=== PATIENT | female | born 1960 | race Caucasian/White ===

== ENCOUNTER → 2018-07-10 10:37 | Outpatient (CLI) | payer BC, SELFPAY ==
--- NOTE | 2018-07-10 10:39 | XR_ITS ---
XR wrist RT min 3V HISTORY follow-up fracture/ORIF ITS.REASON: Rt wrist splint ORDERING PHYSICIAN: Leeann Morejon MD PATIENT AGE: 58 years Comparison: 07/01/2018 FINDINGS: There is placement of an anterior bone plate at the distal radius with multiple screws stabilizing the distal radial fracture which is in good alignment. Fracture line is still visible. IMPRESSION: Good alignment status post ORIF distal radial fracture
== END ==
PROVIDERS: Visit Provider Orthopaedic Surgery
DX: S52.509A Unspecified fracture of the lower end of unspecified radius, initial encounter for closed fracture (principal)
CPT/HCPCS: 73110

== ENCOUNTER → 2018-07-31 10:43 | Outpatient (CLI) | payer BC, SELFPAY ==
--- NOTE | 2018-07-31 10:46 | XR_ITS ---
XR wrist RT min 3V HISTORY follow-up fracture ITS.REASON: Rt Wrist Fx ORDERING PHYSICIAN: Leeann Morejon MD PATIENT AGE: 58 years Comparison: 07/10/2018 FINDINGS: Status post ORIF comminuted distal radial fracture with anterior bone plate in place. Splint has been removed. The fracture lines are still visible although somewhat less apparent. The remains good alignment. IMPRESSION: Good alignment status post ORIF distal radial fracture
== END ==
PROVIDERS: Visit Provider Orthopaedic Surgery
DX: S52.501A Unspecified fracture of the lower end of right radius, initial encounter for closed fracture (principal)
CPT/HCPCS: 73110

== ENCOUNTER 2018-07-31 12:19 | Outpatient (RCR) | payer BC, SELFPAY | END 2018-08-12 16:17 | disposition home or self-care (01) | LOC: OT 12:19 | PROVIDERS: Visit Provider Orthopaedic Surgery | DX: S52.501A Unspecified fracture of the lower end of right radius, initial encounter for closed fracture (principal) | CPT/HCPCS: 97763 ==

== ENCOUNTER → 2018-08-05 13:34 | Outpatient (CLI) | payer BC, SELFPAY ==
[2018-08-05 14:17] LABS: Basophils % 0.7 % (0.1-2.0); Eosinophils # 0.5 K/mm3 (0.0-0.4); Eosinophils % 8.6 % (0.1-12.0); Hematocrit 43.3 % (37.0-47.0); Hemoglobin 13.7 g/dL (12.2-16.2); Lymphocytes # 2.3 K/mm3 (0.7-4.5); Lymphocytes % 38.5 % (10-50); Mean Corpuscular HGB Conc 31.7 g/dL (31.8-35.4); Mean Corpuscular Hemoglobin 32.2 pg (27.0-31.2); Mean Corpuscular Volume 101.7 fl (81-99); Mean Platelet Volume 7.4 fl (7.4-10.4); Monocytes # 0.3 K/mm3 (0.1-1.0); Monocytes % 5.8 % (1.7-9.3); Neutrophils # 2.7 K/mm3 (1.8-7.8); Neutrophils % 46.4 % (37.0-80.0); Platelet Count 284 K/mm3 (142-424); Red Blood Count 4.25 M/mm3 (4.20-5.40); Red Cell Distribution Width 13.1 % (11.5-17.5); White Blood Count 5.9 K/mm3 (4.8-10.8)
[2018-08-05 14:46] LABS: Erythrocyte Sedimentation Rate 21 mm/hr (0-30)
[2018-08-05 19:23] LABS: C-Reactive Protein < 0.2 mg/L (0.0-0.9)
== END ==
PROVIDERS: Visit Provider Orthopaedic Surgery
DX: S52.509A Unspecified fracture of the lower end of unspecified radius, initial encounter for closed fracture (principal)
CPT/HCPCS: 36415; 85025; 85651; 86140

== ENCOUNTER → 2018-09-01 08:39 | Outpatient (CLI) | payer BC, SELFPAY ==
--- NOTE | 2018-09-01 08:47 | XR_ITS ---
XR wrist RT min 3V HISTORY follow-up fracture/ORIF ITS.REASON: sp ORIF rt distal radius ORDERING PHYSICIAN: Tami Tariq DPM PATIENT AGE: 58 years Comparison: 07/31/2018 FINDINGS: There is generalized osteopenia. Bone plate is present along the anterior aspect of the distal radius. There is good alignment. Fracture line still visible medially. IMPRESSION: Good alignment status post ORIF distal radial fracture
== END ==
PROVIDERS: Visit Provider Podiatrist
DX: Z48.89 Encounter for other specified surgical aftercare (principal); S52.501A Unspecified fracture of the lower end of right radius, initial encounter for closed fracture
CPT/HCPCS: 73110

== ENCOUNTER → 2018-12-31 09:04 | Outpatient (CLI) | payer BC, SELFPAY ==
[2018-12-31 11:06] LABS: Basophils % 0.6 % (0.1-2.0); Eosinophils # 0.5 K/mm3 (0.0-0.4); Eosinophils % 9.3 % (0.1-12.0); Hematocrit 49.1 % (37.0-47.0); Lymphocytes % 33.7 % (10-50); Mean Corpuscular HGB Conc 30.5 g/dL (31.8-35.4); Mean Corpuscular Hemoglobin 32.1 pg (27.0-31.2); Mean Corpuscular Volume 105.3 fl (81-99); Mean Platelet Volume 7.7 fl (7.4-10.4); Monocytes # 0.3 K/mm3 (0.1-1.0); Monocytes % 5.1 % (1.7-9.3); Neutrophils % 51.2 % (37.0-80.0); Platelet Count 424 K/mm3 (142-424); Red Blood Count 4.66 M/mm3 (4.20-5.40); Red Cell Distribution Width 13.4 % (11.5-17.5); White Blood Count 5.8 K/mm3 (4.8-10.8)
[2018-12-31 12:55] LABS: Alanine Aminotransferase 26 U/L (12-78); Albumin Level 4.2 gm/dL (3.4-5.0); Albumin/Globulin Ratio 1.3 (1.1-1.8); Alkaline Phosphatase 129 U/L (46-116); Aspartate Amino Transferase 16 U/L (15-37); Bilirubin,Total 0.5 mg/dL (0.2-1.0); Blood Urea Nitrogen 13 mg/dL (7-18); Calcium 9.4 mg/dL (8.5-10.1); Carbon Dioxide 27 mmol/L (21.0-32.0); Chloride 103 mmol/L (98-107); Chol/HDL Ratio 3.8 (1-3.5); Cholesterol 243 mg/dL (140-200); Creatinine,Serum 0.68 mg/dL (0.55-1.02); Estimated Glomerular Filt Rate 88 ml/min (>60); GFR (African American) 107 ML/MIN (>60); Globulin 3.3 gm/dl (1.3-3.2); Glucose 92 mg/dL (74-106); HDL Cholesterol 64 mg/dL (29-89); LDL Cholesterol 159 mg/dL (0-130); Sodium 141 mmol/L (136-145); T4 (Thyroxine) 12.1 ug/dl (4.7-13.3); Thyroid Stimulating Hormone 0.59 uIU/ml (0.358-3.740); Total Protein,Serum 7.5 gm/dL (6.4-8.2); Triglycerides 99 mg/dL (30-200); VLDL Cholesterol 20 mg/dL (0-40)
[2019-01-01 17:54] LABS: Vitamin B12 220 pg/mL (232-1245)
[2019-01-01 17:55] LABS: Vitamin D 25 Hydroxy 20.9 ng/mL (30.0-100.0)
== END ==
PROVIDERS: Visit Provider Nurse Practitioner Family
DX: R53.83 Other fatigue (principal); Z13.220 Encounter for screening for lipoid disorders; E55.9 Vitamin D deficiency, unspecified
CPT/HCPCS: 36415; 80053; 80061; 82607; 82652; 84436; 84443; 85025

== ENCOUNTER → 2019-01-06 16:07 | Outpatient (CLI) | payer BC, SELFPAY ==
--- NOTE | 2019-01-06 16:17 | XR_ITS ---
XR chest 2V HISTORY: ITS.REASON: elevated alk phos ORDERING PHYSICIAN: Nitza Haley APRN PATIENT AGE: 58 years COMPARISON: 06/16/2016 FINDINGS: The cardiomediastinal silhouette and pulmonary vascularity are within normal limits. Increased markings are present within the lingula. Some of this is old wall there is some increased density in the lingula laterally which was not present on the previous exam suggesting some underlying infiltrate or progressive fibrotic change. The remaining lungs are clear. There is mild kyphosis of the thoracic spine. IMPRESSION: Slight increased markings within the lingula which may represent superimposed infiltrate or progressive volume loss or worsening fibrotic change
== END ==
PROVIDERS: PCP Nurse Practitioner Family; Visit Provider Nurse Practitioner Family
DX: R74.8 Abnormal levels of other serum enzymes (principal)
CPT/HCPCS: 71046

== ENCOUNTER 2021-11-06 13:18 | Emergency (ER) | payer BC, SELFPAY ==
[2021-11-06 13:44] VITALS: BP 148/79; PULSE 91; RESP 16; TEMP 36.8; O2SAT 96; BMI 16.9
--- NOTE | 2021-11-06 14:23 | HMH.EDUTC ---
[facility] Clinical Impression: Acute bronchitis Qualifiers: Bronchitis organism: unspecified organism Qualified Code(s): J20.9 - Acute bronchitis, unspecified Disposition: Home, Self-Care Condition on Discharge: Good Instructions: Acute Bronchitis, DI for Sinusitis, DI for Acute Bronchitis Additional Instructions: Drink plenty of fluids. Take tylenol or ibuprofen for pain or fever. Take the medications as directed. Follow up with your regular doctor. GO TO THE ER FOR ANY WORSENING SYMPTOMS Don't start the oral steroids until tomorrow, since you had the shot here today. The cough medication (promethazine dm) will make you drowsy, so don't drive or operate heavy machinery after taking it. Prescriptions: Albuterol Sulfate [Albuterol Sulfate Hfa] 2 puffs IH Q6HP PRN 30 Days #1 each PRN Reason: Shortness Of Breath Transmission Status: Received by [id number] Promethazine/Dextromethorphan [Promethazine-Dm Syrup] 5 ml PO Q6HP PRN #240 ml PRN Reason: Cough Transmission Status: Received by [facility] Amoxicillin/Potassium Clav [Amox-Clav 875-125 mg Tablet] 1 tab PO BID #20 tab Transmission Status: Received by [facility] methylPREDNISolone [Medrol] 4 mg PO DIRECTED 6 Days #21 packet Transmission Status: Received by [facility] Referrals: Nitza Haley APRN [Primary Care Provider] - Forms: Work/School Release Time of Disposition: 15:11 Medical Decision Making - Medical Records Medical records reviewed: Yes: I reviewed the patient's medical records. - Anil Inquiry Pt receiving controlled substance: No Vital Signs: 11/06/21 13:44 Temperature 98.2 F Temperature Source Oral Pulse Rate [Left] 91 H Respiratory Rate 16 Blood Pressure [Right Arm] 148/79 H Blood Pressure Mean [Right Arm] 102 02 Sat by Pulse Oximetry 96 - Lab Data Lab Results 11/06/21 14:37: Influenza Type A Ag Negative, Influenza Type B Ag Negative Orders (Tests/Meds): ED MEDICATIONS Discontinued Medications Generic Name Dose Route Start Last Admin Trade Name Freq PRN Reason Stop Dose Admin Ceftriaxone Sodium 1 gm 11/06/21 14:54 11/06/21 15:04 Ceftriaxone 1gm Vial IM 11/06/21 14:55 1 gm ONCE ONE Administration Dexamethasone Sodium Phosphate 6 mg 11/06/21 14:54 11/06/21 15:05 Dexamethasone 4mg/Ml 1ml Vial IM 11/06/21 14:55 6 mg ONCE ONE Administration Lidocaine HCl 0 ml 11/06/21 14:54 11/06/21 15:06 Lidocaine 1% 5ml Pf Vial IM 11/06/21 14:55 2 ml ONCE ONE Administration ORDERS Category Date Time Status Chest XR 2 view (NOT portable) [XR chest 2V] Stat Exams 11/06/21 14:34 Taken Full Resp Panel w/COVID ([facility]) Routine Lab 11/06/21 15:05 Ordered [facility] UTC HPI - General Stated complaint: h/a, head congestion, weakness Time Seen by Provider: 11/06/21 14:24 Mode of Arrival: Ambulatory Source of Information: Patient HEENT Symptoms (Recalled from RN notes): Yes Resp Symptoms (Recalled from RN notes): Yes Skin Symptoms (Recalled from RN notes): No MS Symptoms (Recalled from RN notes): No Functional Status (Recalled from RN notes): wnl - History of Present Illness Provider Complaint: He c/o left ear pain for the past 2 days. He denies any fever or chills. - Related Data Previous Rx's Medication Instructions Recorded Albuterol Sulfate [Albuterol 2 puffs IH Q6HP PRN 30 Days #1 each 11/06/21 Sulfate Hfa] Amoxicillin/Potassium Clav 1 tab PO BID #20 tab 11/06/21 [Amox-Clav 875-125 mg Tablet] Promethazine/Dextromethorphan 5 ml PO Q6HP PRN #240 ml 11/06/21 [Promethazine-Dm Syrup] methylPREDNISolone [Medrol] 4 mg PO DIRECTED 6 Days #21 11/06/21 packet Allergies Allergy/AdvReac Type Severity Reaction Status Date / Time No Known Allergies Allergy Verified 06/04/21 11:30 - Worker's Comp Is this a Worker's Comp case?: No Is this an [facility] Worker's Comp?: No Is this a [place] Worker's C
--- NOTE | 2021-11-06 14:34 | XR_ITS ---
FINAL REPORT CLINICAL HISTORY: cough, congestion, smoker, headache FINDINGS: 2 views of the chest were obtained. The heart size is normal. The mediastinum is unremarkable. The lungs are hyperinflated, consistent with COPD. There is mild scarring. There are no pleural effusions. There is no pneumothorax. There is no acute osseous abnormality. IMPRESSION: No acute cardiopulmonary process. Reviewed, Interpreted and Dictated by Oren Alvarez III, MD Transcribed by Desiree Snowden Authenticated by Oren Alvarez III, MD on 11/06/2021 03:35:11 PM [facility]
[2021-11-06 14:51] LABS: UTC Influenza A Antigen Negative (Negative); UTC Influenza B Antigen Negative (Negative)
[2021-11-06 15:23] VITALS: BP 148/79; PULSE 91; RESP 16; TEMP 36.8
== END 2021-11-06 15:24 | disposition home or self-care (01) ==
PROVIDERS: Emergency Provider Nurse Practitioner Family; PCP Nurse Practitioner Family
DX: J20.9 Acute bronchitis, unspecified (principal); F17.210 Nicotine dependence, cigarettes, uncomplicated
CPT/HCPCS: 71046; 87804; 96372; 99213; G0463; J0696

== ENCOUNTER 2022-03-13 18:09 | Emergency (ER) | payer BC, SELFPAY ==
[2022-03-13 19:06] VITALS: BP 114/52; PULSE 88; RESP 21; TEMP 36.7; O2SAT 96; BMI 19.1
--- NOTE | 2022-03-13 19:34 | EXP.UTC ---
Discharge Plan Disposition Patient Disposition: Home, Self-Care Condition: Fair Chief Complaint: Abdominal Pain Prescriptions Prescriptions: No Action No Known Home Medications Referrals Referrals: Bird Lund APRN [Primary Care Provider] - Enter time for follow up Clinical Impressions Clinical Impression: Abdominal pain Instructions Patient Instructions: DI for Acute Abdominal Pain Discharge ED Provider: Ed Ac [facility] General Chief complaint: Abdominal Pain Stated complaint: stomach cramps Time Seen by Provider: 03/13/22 19:35 Mode of Arrival: Ambulatory Source of Information: Patient Limitations: No Limitations Description of Symptoms (Recalled from Triage Doc. by RN): patient comes in with cramping in stomach, right upper quadrant, boy aches. HEENT Symptoms (Recalled from RN notes): No Resp Symptoms (Recalled from RN notes): No Skin Symptoms (Recalled from RN notes): No MS Symptoms (Recalled from RN notes): No Functional Status (Recalled from RN notes): n/a History of Present Illness Provider Complaint: Patient state that she has been having pain in the right side of her abdomen for the last couple of week that has got worse State that its like a crampy pain at times and she thought it would go away but it hasnt and only got worse States that today pain was worse and she couldnt get comfortable State that her last BM was around 2pm today and denies burning with urination Related Data Home Medications Medication Instructions Recorded Confirmed No Known Home Medications 03/13/22 03/13/22 Allergies Allergy/AdvReac Type Severity Reaction Status Date / Time No Known Allergies Allergy Verified 03/13/22 19:09 Worker's Comp Is this a Worker's Comp case?: No [facility] Social History (Updated 03/13/22 @ 22:26 by Ed Ac MD) Smoking Status: Current every day smoker tobacco type: cigarettes packs per day: 1 alcohol intake: never substance use type: denies use current occupational status: unemployed household members: spouse housing: house caffeine: No ROS Obtained: Yes All systems reviewed & no additional complaints except as documented and Yes Systems reviewed as appropriate & no additional complaints except as documented Constitutional Constitutional: Reports system reviewed and no additional complaints, except as documented ENT Ears, Nose, Mouth, and Throat: Reports system reviewed and no additional complaints, except as documented Cardiovascular Cardiovascular: Reports system reviewed and no additional complaints, except as documented and Reports as per HPI Respiratory Respiratory: Reports system reviewed and no additional complaints, except as documented and Reports as per HPI Gastrointestinal Gastrointestingal: Reports system reviewed and no additional complaints, except as documented, abdominal pain (reports achy crampy like pain in right side of abdomen on and off 2 weeks ), bloating and diarrhea (reports has IBS and has frequent diarrhea); Denies coffee ground emesis, hematemesis, hematochezia or melena Genitourinary Female Genitourinary: Reports system reviewed and no additional complaints, except as documented, Denies dysuria, Denies urinary frequency and Denies urinary urgency Musculoskeletal Musculoskeletal: Reports system reviewed and no additional complaints, except as documented Physical Exam General General appearance: alert and in no apparent distress Respiratory Respiratory exam: Present normal lung sounds bilaterally; Absent respiratory distress Cardiovascular Cardiovascular exam: Present regular rate and normal rhythm Abdominal Exam Abdominal exam: Present tenderness (reports tenderness with palpation in right upper and lower quad with palpation) Abdominal tenderness: Present mild and moderate Neurological Exam Neurological exam: Present alert and oriented X3 Medical Decision Making Anil Inquiry Pt receiving controlled
[2022-03-13 19:49] VITALS: BP 140/73; PULSE 86; RESP 18; TEMP 36.8; O2SAT 98; BMI 16.5
--- NOTE | 2022-03-13 19:57 | CT_ITS ---
PROCEDURE INFORMATION: Exam: CT Abdomen And Pelvis With Contrast Exam date and time: 03/13/2022 8:56 PM Age: 62 years old Clinical indication: Abdominal pain; Generalized; Additional info: Abd david TECHNIQUE: Imaging protocol: Computed tomography of the abdomen and pelvis with contrast. Radiation optimization: All CT scans at this facility use at least one of these dose optimization techniques: automated exposure control; mA and/or kV adjustment per patient size (includes targeted exams where dose is matched to clinical indication); or iterative reconstruction. Contrast material: ISOVUE; Contrast volume: 75 ml; Contrast route: IV; COMPARISON: ABDPELW CT ABD PELVIS W/ CONTRAST 11/08/2015 6:53 PM FINDINGS: Lungs: Mild emphysematous changes in the lung bases. Patchy alveolar density in the central left lung base is marginally visualized, concerning for possible pneumonia or marginally visualized nodule. Recommend nonemergent dedicated chest CT as clinically indicated. There is minor dependent atelectasis in the right base. Heart: Heart size normal. Mediastinal space: The visualized distal esophagus is largely contracted without gross abnormality. Liver: Normal contour. No mass lesions. No intrahepatic biliary ductal dilatation. Gallbladder and bile ducts: Prior cholecystectomy with expected mild postoperative dilatation of the common bile duct. This is unchanged. Pancreas: Normal variant pancreas divisum configuration of the pancreatic ductal system. No changes of pancreatitis. No ductal dilatation. Pancreas otherwise unremarkable. Spleen: Granulomatous calcifications in the spleen without acute splenic abnormality. Adrenal glands: Normal. No adrenal mass. Kidneys and ureters: No acute abnormalities. No hydronephrosis or hydroureter. No urinary tract stones are identified. Stomach and bowel: The stomach is unremarkable. The small bowel is nondilated with no gross abnormality. Moderate sigmoid diverticulosis with no definite changes of acute diverticulitis. The distal colon is largely contracted, limiting characterization somewhat. Appendix: The appendix is normal in caliber and demonstrates no evidence of appendicitis. It is best visualized on sagittal reconstructions in the right adnexal region. Intraperitoneal space: No free fluid or air. Vasculature: No acute process. No abdominal aortic aneurysm. Lymph nodes: No adenopathy. Urinary bladder: The urinary bladder is largely contracted without gross abnormality. Reproductive: See Appendix finding. Bones/joints: No acute osseous abnormalities. Osteopenia. Chronic mild superior endplate compression deformity of L3 unchanged. Soft tissues: Unremarkable. IMPRESSION: 1. Patchy alveolar opacity in the central left lower lobe is marginally visualized and could represent pneumonia or possibly pulmonary nodule with adjacent atelectasis. Recommend nonemergent chest CT for full visualization/characterization. 2. Sigmoid diverticulosis without gross changes of diverticulitis. 3. Additional nonemergent findings detailed above.
[2022-03-13 20:33] LABS: Alanine Aminotransferase 16 U/L (12-78); Albumin Level 4.7 g/dl (3.5-5.0); Albumin/Globulin Ratio 1.5 (1.1-1.8); Alkaline Phosphatase 128 U/L (38-126); Anion Gap 9.6 mEq/L (5-15); Aspartate Amino Transferase 23 U/L (14-36); Blood Urea Nitrogen 13 mg/dl (7-17); Calcium 9.6 mg/dl (8.4-10.2); Carbon Dioxide 30 mmol/L (22.0-30.0); Chloride 104 mmol/L (98-107); Creatinine Clearance Estimated 40 mL/min (50-200); Estimated Glomerular Filt Rate 84 ml/min (>60); GFR (African American) 102 ML/MIN (>60); Globulin 3.1 g/dL (1.3-3.2); Glucose 98 mg/dl (74-100); Lactic Acid 0.6 mmol/L (0.7-2.1); Lipase 39 U/L (23-300); Potassium 3.6 mmoL/L (3.5-5.1); Sodium 140 mmol/L (136-145); Total Protein,Serum 7.8 g/dl (6.3-8.2)
[2022-03-13 20:37] LABS: Basophils # 0.1 K/mm3 (0-0.2); Basophils % 1.1 % (0.1-2.0); Eosinophils # 1.4 K/mm3 (0.0-0.4); Hematocrit 45.6 % (37.0-47.0); Hemoglobin 14.9 g/dL (12.2-16.2); Lymphocytes # 2.7 K/mm3 (0.7-4.5); Lymphocytes % 34.6 % (10-50); Mean Corpuscular HGB Conc 32.6 g/dL (31.8-35.4); Mean Corpuscular Hemoglobin 33.9 pg (27.0-31.2); Mean Corpuscular Volume 103.9 fl (81-99); Mean Platelet Volume 7.8 fl (7.4-10.4); Monocytes # 0.4 K/mm3 (0.1-1.0); Monocytes % 4.8 % (1.7-9.3); Neutrophils # 3.2 K/mm3 (1.8-7.8); Neutrophils % 41.5 % (37.0-80.0); Platelet Count 379 K/mm3 (142-424); Red Blood Count 4.39 M/mm3 (4.20-5.40); Red Cell Distribution Width 13.2 % (11.5-17.5); White Blood Count 7.7 K/mm3 (4.8-10.8)
[2022-03-13 20:39] LABS: Bilirubin,Total < 0.1 mg/dl (0.2-1.3); C-Reactive Protein 0.6 mg/L (0-4)
[2022-03-13 21:01] LABS: Erythrocyte Sedimentation Rate 15 mm/hr (0-30)
[2022-03-13 21:28] LABS: Microscopic, Urine URINE MICROSCOPIC (MICROSCOPIC)
[2022-03-13 21:29] LABS: Appearance,Urine CLEAR (Clear); Bilirubin,Urine Negative (Negative); Blood, Urine TRACE-L (Negative); Color,Urine YELLOW (Yellow); Glucose,Urine (UA) Negative (Negative); Ketones,Urine Negative (Negative); Leukocyte Esterase,Urine Negative (Negative); Nitrate,Urine Negative (Negative); Protein,Urine Negative (Negative); Specific Gravity, Urine 1.025 (1.005-1.030); Urobilinogen,Urine 0.2 EU/dl (0.2)
[2022-03-13 21:56] LABS: Bacteria,Urine Trace /lpf; RBC,Urine Occasional #/hpf (0-3); Squamous Epithelial Cell,Urine Occasional #/hpf (0-5)
--- NOTE | 2022-03-13 22:19 | HMH.EDABDPAI ---
Discharge Plan Disposition Patient Disposition: Home, Self-Care Condition: Fair Chief Complaint: Abdominal Pain Prescriptions Prescriptions: No Action No Known Home Medications Referrals Referrals: Bird Lund APRN [Primary Care Provider] - Enter time for follow up Clinical Impressions Clinical Impression: Abdominal pain Instructions Patient Instructions: DI for Acute Abdominal Pain Discharge ED Provider: Ed Ac Abdominal Pain HPI General Chief Complaint: Abdominal Pain Stated Complaint: stomach cramps Time Seen by Provider: 03/13/22 19:35 Mode of Arrival: Ambulatory Source of Information: Patient, Relative and Medical Record Limitations: No Limitations Description of Symptoms (Recalled from ER Triage Doc. by RN): pt c/o RLQ pain with crampng for several days but gotten worse today. pt denies n/v/d History of Present Illness HPI narrative: crampy abd pain with loose stool today MD complaint: abdominal pain Onset (ago): day(s) Consistency: intermittent Location: diffuse Severity: moderate Quality: cramping Related Data Home Medications Medication Instructions Recorded Confirmed No Known Home Medications 03/13/22 03/13/22 Allergies Allergy/AdvReac Type Severity Reaction Status Date / Time No Known Allergies Allergy Verified 03/13/22 19:09 [facility] Social History Smoking Status: Current every day smoker tobacco type: cigarettes packs per day: 1 alcohol intake: never substance use type: denies use current occupational status: unemployed household members: spouse housing: house caffeine: No ROS Obtained: Yes Systems reviewed as appropriate & no additional complaints except as documented Constitutional Constitutional: Denies fever(s) Gastrointestinal Gastrointestingal: Reports abdominal pain and cramping; Denies melena Physical Exam General General appearance: alert and in no apparent distress Head Head exam: atraumatic Eye Eye exam: Present PERRL and EOMI ENT ENT exam: Present normal exam Neck Neck exam: Present trachea midline Respiratory Respiratory exam: Absent respiratory distress Cardiovascular Cardiovascular exam: Present regular rate and systolic murmur Abdominal Exam Abdominal exam: Present soft and tenderness; Absent guarding or rebound Abdominal tenderness: Present diffuse and mild Extremities Exam Extremities exam: Present full ROM Neurological Exam Neurological exam: Present alert, oriented X3 and CN II-XII intact Psychiatric Psychiatric exam: Present normal affect Skin Skin exam: Present intact Medical Decision Making Medical Records Medical records reviewed: Yes I reviewed the patient's medical records. Anil Inquiry Pt receiving controlled substance: No Vital Signs: 03/13/22 19:06 03/13/22 19:49 Temperature 98.0 F 98.2 F Temperature Source Oral Oral Pulse Rate [Left] 88 86 Respiratory Rate 21 18 Blood Pressure [Right Arm] 114/52 L 140/73 Blood Pressure Mean [Right Arm] 72 95 02 Sat by Pulse Oximetry 96 98 Lab Data Lab Results 03/13/22 19:45: Urine Color Yellow, Urine Appearance Clear, Urine pH 6.0, Ur Specific [place] 1.025, Urine Protein Negative, Urine Glucose (UA) Negative, Urine Ketones Negative, Urine Blood Trace-l, Urine Nitrate Negative, Urine Bilirubin Negative, Urine Urobilinogen 0.2, Ur Leukocyte Esterase Negative, Urine RBC Occasional, Urine WBC 3-5, Ur Squamous Epith Cells Occasional, Urine Bacteria Trace 03/13/22 20:07: WBC 7.7, RBC 4.39, Hgb 14.9, Hct 45.6, MCV 103.9 H, MCH 33.9 H, MCHC 32.6, RDW 13.2, Plt Count 379, MPV 7.8, Neut % (Auto) 41.5, Lymph % (Auto) 34.6, Pierce % (Auto) 4.8, Eos % (Auto) 18.0 H, Baso % (Auto) 1.1, Neut # (Auto) 3.2, Lymph # (Auto) 2.7, Pierce # (Auto) 0.4, Eos # (Auto) 1.4 H, Baso # (Auto) 0.1, ESR 15 03/13/22 20:07: Sodium 140, Potassium 3.6, Chloride 104, Carbon Dioxide 30, Anion Gap 9.6, BUN 13, Creatinine 0
[2022-03-13 22:21] VITALS: BP 134/78; PULSE 81; RESP 18; TEMP 36.8; O2SAT 98
== END 2022-03-13 22:43 | disposition home or self-care (01) ==
LOC: UTC 19:16 → ER 19:46 → UTC 19:48 → ER 19:49
PROVIDERS: Nurse Practitioner; Emergency Provider Emergency Medicine; PCP Nurse Practitioner Family
DX: R10.9 Unspecified abdominal pain (principal)
CPT/HCPCS: 74177; 80053; 81001; 83605; 83690; 85025; 85651; 86140; 87040; 96365; 96375; 99284; Q9967

== ENCOUNTER → 2022-03-21 10:59 | Outpatient (CLI) | payer BC, SELFPAY ==
--- NOTE | 2022-03-21 11:04 | XR_ITS ---
FINAL REPORT CLINICAL HISTORY: ABNORMAL FINDINGS OF DX IMAGING COMPARISON: CT dated March 13, 2022 FINDINGS: Two views of the chest were obtained. The heart size and pulmonary vascularity are within normal limits. The mediastinum is normal. The lungs are hyperinflated consistent with COPD. There is mild atelectasis or scarring in the lung bases. There is mild biapical scarring. There is an 11 mm nodular opacity in the left lung base that corresponds to the abnormality on the recent CT scan. This finding has a nonspecific appearance, inflammatory or neoplastic. There is no pneumothorax. The bony thorax is intact. IMPRESSION: Left lung base nodular opacity with a nonspecific appearance, inflammatory or neoplastic. Recommend follow-up radiographs or follow-up CT. Reviewed, Interpreted and Dictated by Oren Alvarez III, MD Transcribed by Martine Gay Authenticated and [facility]
== END ==
PROVIDERS: PCP Nurse Practitioner Family; Visit Provider Nurse Practitioner Family
DX: R93.89 Abnormal findings on diagnostic imaging of other specified body structures (principal)
CPT/HCPCS: 71046

== ENCOUNTER → 2022-03-29 13:21 | Outpatient (CLI) | payer BC, SELFPAY ==
--- NOTE | 2022-03-29 13:26 | CT_ITS ---
FINAL REPORT TECHNIQUE: Axial imaging of the chest was obtained without contrast. Reformatted images were also obtained and reviewed.This study was performed with techniques to keep radiation doses as low as reasonably achievable, (ALARA). Individualized dose reduction technique using automated exposure control or adjustment of mA and/or kV according to the patient's size were employed. CLINICAL HISTORY: ABNORMAL CT ABD ON 03/13 QUESTIONABLE NODULE ON LEFT LOWER LUNG COMPARISON: 03/13/2022 FINDINGS: There is no axillary adenopathy. There is no hilar or mediastinal mass or adenopathy. Heart size is normal. There is no pericardial or pleural effusion. There is mild scarring and moderate emphysema. There has been interval resolution of previously seen left lower lobe nodular opacity. No suspicious infiltrate or nodule is identified on lung window images. Limited imaging of the upper abdomen demonstrates postoperative change of cholecystectomy but is otherwise without acute abnormality. IMPRESSION: Interval resolution of left lower lobe nodular opacity. Reviewed, Interpreted and Dictated by Oren Alvarez III, MD Transcribed by Priscilla Ni Authenticated and [facility]
== END ==
PROVIDERS: PCP Nurse Practitioner Family; Visit Provider Nurse Practitioner Family
DX: R91.8 Other nonspecific abnormal finding of lung field (principal)
CPT/HCPCS: 71250

== ENCOUNTER → 2022-06-17 09:36 | Outpatient (CLI) | payer BC, SELFPAY ==
--- NOTE | 2022-06-17 10:24 | PC.NURSE ---
PFT and 6 Minute walk test completed without incident. Albuterol 0.083% given via HHN, per protocol, Pt tolerated tx well.
== END ==
PROVIDERS: PCP Nurse Practitioner Family; Visit Provider Internal Medicine Pulmonary Disease
DX: R06.09 Other forms of dyspnea (principal)
CPT/HCPCS: 94060; 94618; 94726; 94729

== ENCOUNTER 2023-02-20 20:01 | Emergency (ER) | payer MEDICARE, BC, SELFPAY ==
[2023-02-20 20:02] VITALS: BP 131/73; PULSE 112; RESP 16; TEMP 37.3; O2SAT 97; BMI 18.1
--- NOTE | 2023-02-20 20:35 | HMH.EDGENADL ---
Discharge Plan Disposition Patient Disposition: Home, Self-Care Condition: Good Prescriptions Prescriptions: New valacyclovir 1 gram tablet 1,000 mg PO Q8H 7 Days Qty: 21 0RF No Action albuterol sulfate 90 mcg/actuation HFA aerosol inhaler 2 inh inhalation QID PRN (Reason: shortness of breath or wheezing) 90 Days Qty: 8.5 2RF Anoro Ellipta 62.5-25 mcg/actuation blister with device 1 inh inhalation DAILY 90 Days Qty: 180 3RF Referrals Follow up/Referrals: Nitza Haley APRN [Primary Care Provider] - See instructions Clinical Impressions Clinical Impression: Shingles Instructions Patient Instructions: DI for Shingles Discharge ED Provider: [place] [facility] HPI General Chief complaint: Skin/Abscess/Foreign Body Stated complaint: Rash and pain on L side Time Seen by Provider: 02/20/23 20:30 Mode of Arrival: Ambulatory Source of Information: Patient Limitations: No Limitations Description of Symptoms (Recalled from ER Triage Doc. by RN): pt c/o rash on lt lower abd and lt flank that started this morning. History of Present Illness HPI narrative: Patient who is otherwise healthy aside from COPD who presents to the ED with complaints of rash. Patient notes that for the past 5 days, she has been experiencing a burning pain over the LLQ and L flank. Patient denies any nausea, vomiting, diarrhea, bowel changes. This morning, patient started noticing a vesicular rash develop over the same distribution of her pain. Patient denies any fevers chills CP SOB. Related Data Previous Rx's Medication Instructions Recorded albuterol sulfate 90 mcg/actuation 2 inh inhalation QID PRN shortness 05/06/22 aerosol inhaler of breath or wheezing 90 days #8.5 grams umeclidinium 62.5 mcg-vilanterol 1 inh inhalation DAILY 90 days 06/25/22 25 mcg/actuation powdr for #180 ea inhalation (Anoro Ellipta) valacyclovir 1 gram tablet 1,000 mg PO Q8H 7 days #21 tabs 02/20/23 Allergies Allergy/AdvReac Type Severity Reaction Status Date / Time No Known Allergies Allergy Verified 10/30/22 10:31 [facility] Disclaimer: The information contained in this section may have been updated after the patient was seen, as this information can be updated by other users. Medical History (Updated 02/20/23 @ 21:25 by [place] MD) Abnormal screening CT of chest Dyspnea on exertion Pulmonary emphysema Smoking greater than 30 pack years Tobacco abuse counseling Tobacco abuse disorder Surgical History History of tubal ligation Hx of cholecystectomy Family History Other Coronary artery disease Heart attack Social History Smoking Status: Current every day smoker tobacco type: cigarettes packs per day: 1 alcohol intake: never substance use type: denies use current occupational status: unemployed Travel in the last 8 weeks: None household members: spouse housing: house caffeine: No ROS Obtained: Yes All systems reviewed & no additional complaints except as documented Physical Exam General General appearance: alert and in no apparent distress Head Head exam: atraumatic, normocephalic and normal inspection Eye Eye exam: Present normal appearance, PERRL and EOMI; Absent scleral icterus or nystagmus ENT ENT exam: Present normal exam, mucous membranes moist and normal external ear exam Neck Neck exam: Present normal inspection, full ROM and trachea midline Chest Chest inspection: Present normal inspection and symmetric chest wall rise; Absent tenderness Respiratory Respiratory exam: Present normal lung sounds bilaterally; Absent respiratory distress, wheezes or accessory muscle use Cardiovascular Cardiovascular exam: Present regular rate, normal rhythm and normal heart sounds Abdominal Exam Abdominal exam: Present soft and other (Vesicular ashley
--- NOTE | 2023-02-20 20:43 | PC.NURSE ---
Pt labs drawn and sent to the lab. CR
[2023-02-20 20:53] LABS: Chloride 103 mmol/L (98-107); Potassium 3.7 mmoL/L (3.5-5.1); Sodium 138 mmol/L (136-145)
[2023-02-20 20:56] LABS: Blood Urea Nitrogen 14 mg/dl (7-17); Creatinine Clearance Estimated 40 mL/min (50-200); Estimated Glomerular Filt Rate 101 ml/min (>60); GFR (African American) 122 ML/MIN (>60)
[2023-02-20 20:57] LABS: Anion Gap 9.7 mEq/L (5-15); Calcium 9.1 mg/dl (8.4-10.2); Carbon Dioxide 29 mmol/L (22.0-30.0); Glucose 86 mg/dl (74-100)
[2023-02-20 21:43] VITALS: BP 128/75; PULSE 90; RESP 16; TEMP 37.2; O2SAT 97
== END 2023-02-20 21:44 | disposition home or self-care (01) ==
PROVIDERS: Emergency Provider Emergency Medicine; PCP Nurse Practitioner Family
DX: B02.8 Zoster with other complications (principal); J44.9 Chronic obstructive pulmonary disease, unspecified; F17.210 Nicotine dependence, cigarettes, uncomplicated
CPT/HCPCS: 80048; 99283

== ENCOUNTER 2024-06-15 14:42 | Emergency (ER) | payer MEDICARE, SELFPAY ==
--- OUTSIDE RECORDS SUMMARY | 2024-06-15 14:49 | XMS_ITS | Clinical Summary ---
Author Organization [facility] Address [address] [place] [address] Care Team Providers Care Data Integrity Specialist Name Role Phone Unavailable Primary Care Provider Unavailabl e Social History Tobacco Use Types Packs/Day Years Used Date Smoking Tobacco: Every Day Alcohol Use Standard Drinks/Week Comments No 0 (1 standard drink = 0.6 oz pur e alcohol) Comments Unknown Sex and Gender Information Value Date Recorded Sex Assigned at Not on file Legal Sex Female 8:18 PM EDT Gender Identity Not on file Sexual Orientation Not on file Last Filed Vital Signs Vital Sign Reading Time Taken Comments Blood Pressure - - Pulse - - Temperature - - Respiratory Rate - - Oxygen Saturation - - Inhaled Oxygen Concentration - - Weight 47.2 kg (104 lb 2 oz) 11/20/2015 2:03 PM EDT Height 157.5 cm (5' 2 ) 11/20/2015 2:03 PM EDT Body Mass Index 19.04 11/20/2015 2:03 PM EDT Plan of Treatment Not on file
--- OUTSIDE RECORDS SUMMARY | 2024-06-15 14:49 | XMS_ITS | Encounter Summary ---
Author Organization [facility] Address [address] [place] [id number] Care Team Providers Care Oil Field Tester Name Role Phone Unavailable Primary Care Provider Unavailabl e Encounter Details Date Type Department Care Team (Late st Contact Info) Description 11/20/2015 [facility] Vitals Encounter [facility] [address] [place] [address] Provider, MD Sheba [address] [place] [id number] Social History Tobacco Use Types Packs/Day Years Used Date Smoking Tobacco: Never Assessed Comments Unknown Sex and Gender Information Value Date Recorded Sex Assigned at Not on file Legal Sex Female 8:18 PM EDT Gender Identity Not on file Sexual Orientation Not on file documented as of this encounter Last Filed Vital Signs Vital Sign Reading Time Taken Comments Blood Pressure - - Pulse - - Temperature - - Respiratory Rate - - Oxygen Saturation - - Inhaled Oxygen Concentration - - Weight 47.2 kg (104 lb 2 oz) 11/20/2015 2:03 PM EDT Height 157.5 cm (5' 2 ) 11/20/2015 2:03 PM EDT Body Mass Index 19.04 11/20/2015 2:03 PM EDT documented in this encounter Plan of Treatment Not on file documented as of this encounter Visit Diagnoses Not on filedocumented in this encounter
[2024-06-15 14:58] VITALS: BP 141/72; PULSE 80; RESP 20; TEMP 36.7; O2SAT 100; BMI 16.6
[2024-06-15 15:13] LABS: UTC Influenza A Antigen Negative (Negative); UTC Influenza B Antigen Negative (Negative)
--- NOTE | 2024-06-15 15:19 | EXP.UTC ---
Discharge Plan Disposition Patient Disposition: Home, Self-Care Condition: Good Prescriptions Prescriptions: New doxycycline hyclate 100 mg capsule 100 mg PO BID Qty: 20 0RF mupirocin 2 % ointment 1 applic topical TID 10 Days Qty: 22 0RF Rx Instructions: apply to finger as directed guaifenesin [Mucinex] 600 mg tablet extended release 12hr 600 - 1,200 mg PO BID PRN (Reason: cough) Qty: 20 0RF Referrals Follow up/Referrals: Nitza Haley APRN [Primary Care Provider] - See instructions Activity Restrictions/Add. Instructions Additional Instructions/Restrictions: Clean finger with antibacterial soap and water Apply topical antibiotic ointment to finger as prescribed Take oral antibiotics as prescribed Follow up with your Family Doctor if no improvement Straight to ER if any life threatening symptoms Clinical Impressions Clinical Impression: Sinusitis Instructions Patient Instructions: DI for Sinusitis, DI for Cellulitis -- Adult, Doxycycline, Mupirocin Print Language Print Language: Moldovan Discharge ED Provider: Evelyne Nolan [facility] [place] HPI General Stated complaint: head congestion R hand ring finger infection Mode of Arrival: Ambulatory Source of Information: Parent(s) Time Seen by Provider: 06/15/24 15:19 Description of Symptoms (Recalled from Triage Doc. by RN): FLU LIKE S/S X 1 WEEK, DIXON, CONGESTION, COUGHING UP GREEN STUFF CONCERNED ABOUT RIGHT RING FINGER THAT HAD A BLISTER AND NOW IS RED AND SWOLLEN HEENT Symptoms (Recalled from RN notes): Yes Resp Symptoms (Recalled from RN notes): Yes Skin Symptoms (Recalled from RN notes): Yes MS Symptoms (Recalled from RN notes): No Functional Status (Recalled from RN notes): WNL History of Present Illness Provider Complaint: Patient states that she has been having body aches, cough, sinus congestion and drainage for over a week and now at times with cough up mucous States also she had a blister pop up on her right ring finger and it popped and now the redness and burning has spread on her finger and she is worried that it may be infected so she came in Related Data Previous Rx's ?Medication ?Instructions ?Recorded doxycycline hyclate 100 mg capsule 100 mg PO BID #20 caps 06/15/24 guaifenesin 600 mg tablet, 600 - 1,200 mg (1 - 2 x 600 mg) PO 06/15/24 extended release 12 hr (Mucinex) BID PRN cough #20 tabs mupirocin 2 % topical ointment 1 applic topical TID 10 days #22 06/15/24 grams Allergies Allergy/AdvReac Type Severity Reaction Status Date / Time No Known Allergies Allergy Verified 06/24/23 13:26 Worker's Comp Is this a Worker's Comp case?: No [facility] Disclaimer: The information contained in this section may have been updated after the patient was seen, as this information can be updated by other users. Medical History (Updated 06/15/24 @ 15:29 by Evelyne Nolan APRN) COPD (chronic obstructive pulmonary disease) Tobacco abuse disorder Tobacco abuse counseling Abnormal screening CT of chest Smoking greater than 30 pack years Dyspnea on exertion Pulmonary emphysema Surgical History History of tubal ligation Hx of cholecystectomy Family History Other Coronary artery disease Heart attack Social History Smoking Status: Current every day smoker tobacco type: cigarettes packs per day: 1 alcohol intake: never substance use type: denies use current occupational status: unemployed household members: spouse housing: house caffeine: No ROS Obtained: Yes All systems reviewed & no additional complaints except as documented and Yes Systems reviewed as appropriate & no additional complaints except as documented Constitutional Constitutional: Reports system reviewed and no additional complaints, except as documented and Reports as per HPI ENT Ears, Nose, Mouth, and Throat: Reports system reviewed and no additional complaints, except as documented, Reports as per HPI, Reports sinus pain and Reports sinus pressure Cardiovascular Cardiovascular: Reports system reviewed and no additional complaints, except as documented and Reports as per HPI Respiratory Respiratory: Reports system reviewed and no additional complaints, except as documented, Reports as per HPI, Reports chest congestion and Reports cough Gastrointestinal Gastrointestingal: Reports system reviewed and no additional complaints, except as documented and as per HPI Musculoskeletal Musculoskeletal: Reports system reviewed and no additional complaints, except as documented and Reports as per HPI Integumentary/Breasts Skin/Breast: Reports system reviewed and no additional complaints, except as documented and Reports as per HPI Physical Exam General General appearance: alert and in no apparent distress ENT ENT exam: Present mucous membranes moist Expanded ENT Exam Nose exam: Present sinus tenderness Respiratory Respiratory exam: Present normal lung sounds bilaterally; Absent respiratory distress or wheezes Cardiovascular Cardiovascular exam: Present regular rate, normal rhythm and normal heart sounds Abdominal Exam Abdominal exam: Present soft and normal bowel sounds; Absent distention or tenderness Expanded Upper Extremity Exam Right: Hand L/R back image: 1. small blister like area noted with surrounding redness Neurological Exam Neurological exam: Present alert, oriented X3 and normal gait Medical Decision Making Medical Records Screening: Per USPSTF and CDC recommendations, given the prevalence of disease in our region, it is our hospital?s policy to screen for HIV and viral Hepatitis for all patients aged 18 and over and those with ongoing risk factors. Anil Inquiry Pt receiving controlled substance: No Ainl was queried for this patient: No Vital Signs: 06/15/24 14:58 Temperature 98.1 F Temperature Source Oral Pulse Rate [Left Radial] 80 Respiratory Rate 20 Blood Pressure [Left Arm] 141/72 H Blood Pressure Mean [Left Arm] 95 02 Sat by Pulse Oximetry 100 Lab Data Lab results reviewed: Yes I reviewed the patient's lab results. Lab Results 06/15/24 15:01: Influenza Type A Ag Negative, Influenza Type B Ag Negative
[2024-06-15 15:31] VITALS: BP 141/72; PULSE 80; RESP 20; TEMP 36.7
== END 2024-06-15 15:34 | disposition home or self-care (01) ==
PROVIDERS: Emergency Provider Nurse Practitioner; PCP Nurse Practitioner Family
DX: J01.90 Acute sinusitis, unspecified (principal)
CPT/HCPCS: 87804; 99213; G0381

== ENCOUNTER 2024-10-29 19:48 | Emergency (ER) | payer MEDICARE, SELFPAY ==
--- NOTE | 2024-10-29 19:53 | HMH.EDGENADL ---
Discharge Plan Disposition Patient Disposition: Home, Self-Care Condition: Good Prescriptions Prescriptions: No Action doxycycline hyclate 100 mg capsule 100 mg PO BID Qty: 20 0RF mupirocin 2 % ointment 1 applic topical TID 10 Days Qty: 22 0RF Rx Instructions: apply to finger as directed guaifenesin [Mucinex] 600 mg tablet extended release 12hr 600 - 1,200 mg PO BID PRN (Reason: cough) Qty: 20 0RF Referrals Follow up/Referrals: Nitza Haley APRN [Primary Care Provider] - See instructions Activity Restrictions/Add. Instructions Additional Instructions/Restrictions: Recommend taking the 1000 mg of Tylenol alternating every 4 hours with 800 mg of Motrin taken with food for pain control. You may try ice and/or heat whichever feels better. If you have continued new or worsening signs or symptoms follow-up with your PCP return to the ER as needed. Clinical Impressions Clinical Impression: Right-sided chest wall pain Print Language Print Language: Syriac Discharge ED Provider: Anthony Alonso General Adult HPI <SKYE Braden - Last Filed: 10/29/24 20:39> General Chief complaint: PAIN Stated complaint: fell 2 days ago right rib cage injury Time Seen by Provider: 10/29/24 19:53 History of Present Illness HPI narrative: Patient presents for evaluation of a right anterior lateral chest wall injury. Patient states she was leaning inside a car and felt a pop in her right low anterior lateral chest wall. It has gotten increasingly worse over the last several days and has not responded to any [id number] medications. Patient denies cardiac chest pain shortness of breath fever chills hemoptysis hematochezia melena nausea vomiting diarrhea. She states it hurts to take a deep breath and if she bends in certain positions. Related Data Previous Rx's ?Medication ?Instructions ?Recorded doxycycline hyclate 100 mg capsule 100 mg PO BID #20 caps 06/15/24 guaifenesin 600 mg tablet, 600 - 1,200 mg (1 - 2 x 600 mg) PO 06/15/24 extended release 12 hr (Mucinex) BID PRN cough #20 tabs mupirocin 2 % topical ointment 1 applic topical TID 10 days #22 06/15/24 grams Allergies Allergy/AdvReac Type Severity Reaction Status Date / Time No Known Allergies Allergy Verified 06/24/23 13:26 [facility] <SKYE Braden - Last Filed: 10/29/24 20:39> [facility] Disclaimer: The information contained in this section may have been updated after the patient was seen, as this information can be updated by other users. Medical History (Updated 10/29/24 @ 20:39 by SKYE Braden) COPD (chronic obstructive pulmonary disease) Tobacco abuse disorder Tobacco abuse counseling Abnormal screening CT of chest Smoking greater than 30 pack years Dyspnea on exertion Pulmonary emphysema Surgical History History of tubal ligation Hx of cholecystectomy Family History Other Coronary artery disease Heart attack Social History Smoking Status: Current every day smoker tobacco type: cigarettes packs per day: 1 alcohol intake: never substance use type: denies use current occupational status: unemployed Travel in the last 8 weeks: None household members: spouse housing: house caffeine: No Have you lived/traveled outside US in past 30 days?: No Contact w/someone who lives/traveled outside US past 30 days?: No Exposure to someone with infectious disease in past 14 days?: No Do you have a fever (greater than 100.4 F or 38 C)?: No Have you tested positive for COVID-19: No Exposed to someone with COVID-19 in past 14 days?: No Do you have a sore throat?: No Do you have a cough?: No Do you have any weakness?: No Do you have any diarrhea?: No Are you experiencing any unusual bleeding?: No Do you have any muscle aches/pain?: No Do you have any abdominal pain?: No Are you experiencing loss of taste or smell?: No Other Medical History Have you received the Flu Vaccine for this season: Yes Have you received the Pneumonia Vaccine: No <SKYE Braden - Last Filed: 10/29/24 20:39> ROS Obtained: Yes Systems reviewed as appropriate & no additional complaints except as documented Physical Exam <SKYE Braden - Last Filed: 10/29/24 20:39> General General appearance: alert and in no apparent distress Respiratory Respiratory exam: Present normal lung sounds bilaterally Cardiovascular Cardiovascular exam: Present regular rate Neurological Exam Neurological exam: Present alert and oriented X3 Medical Decision Making <SKYE Braden - Last Filed: 10/29/24 20:39> Medical Records Medical records reviewed: Yes I reviewed the patient's medical records. Screening: Per USPSTF and CDC recommendations, given the prevalence of disease in our region, it is our hospital?s policy to screen for HIV and viral Hepatitis for all patients aged 18 and over and those with ongoing risk factors. Anil Inquiry Pt receiving controlled substance: No Vital Signs: 10/29/24 19:57 10/29/24 20:47 10/29/24 21:09 Temperature 98.1 F 98.1 F Temperature Source Oral Oral Pulse Rate 86 Pulse Rate [Right] 85 Respiratory Rate 28 H 26 H Blood Pressure 140/64 150/72 H Blood Pressure [Right Arm] 159/65 H Blood Pressure Mean [Right Arm] 96 Blood Pressure Position Sitting Blood Pressure Position [Right Arm] Sitting 02 Sat by Pulse Oximetry 99 Oxygen Delivery Method Room Air Room Air Orders (Tests/Meds): ED MEDICATIONS Discontinued Medications Generic Name Dose Route Start Last Admin Trade Name Freq PRN Reason Stop Dose Admin Acetaminophen 1,000 mg 10/29/24 20:09 10/29/24 20:16 Acetaminophen 500mg Tab PO 10/29/24 20:10 1,000 mg ONCE ONE Administration Ibuprofen 800 mg 10/29/24 20:09 10/29/24 20:16 Ibuprofen 400 Mg Tablet PO 10/29/24 20:10 800 mg ONCE ONE Administration Lidocaine 1 each 10/29/24 20:09 10/29/24 20:15 Lidocaine 5% Transdermal Patch TD 10/29/24 20:10 1 each ONCE ONE Administration Oxycodone HCl 5 mg 10/29/24 20:40 10/29/24 20:46 Oxycodone 5mg Immediate Release Tablet PO 10/29/24 20:41 5 mg ONCE ONE Administration ORDERS Category Date Time Status CT chest wo con Stat Cat Scan 10/29/24 20:09 Completed HIV Combo Stat Lab 10/29/24 20:01 Received Hepatitis C Ab Qual. W/ RFX Stat Lab 10/29/24 20:01 Received Medical Decision Narrative: In summary patient is a 64-year-old female who presents to the emergency department for evaluation of anterior lateral chest wall pain. Patient is hemodynamically stable upon arrival, afebrile. Physical exam is remarkable for tenderness to palpation at the lateral costal cartilage rib border however there is no palpable bony deformity contusions abrasions edema ecchymosis noted. Breath sounds clear and equal bilaterally to the bases without active sounds.. Differential diagnosis includes costal cartilage separation versus occult rib fracture versus costal cartilage fracture etc. Initial workup will be conducted with CT scan of the chest without contrast. Initial interventions include Tylenol ibuprofen and Lidoderm patch. Initial workup reviewed by me above formal interpretation of her imaging does not show any acute bony fracture or acute intrathoracic process prior to radiology read. Please see final read for formal interpretation. Upon repeat evaluation [patient had acceptable resolution of symptoms, had persistent pain for which additional interventions were conducted (describe interventions), tolerated p.o., was ambulatory, etc.]. Given this patient is appropriate for discharge with recommendation to continue taking Tylenol alternating with Motrin for symptomatic and supportive care along with ice or heat whichever feels better. If she has continued new or worsening signs or symptoms follow-up with her PCP return to the ER as needed. <Anthony Alonso MD - Last Filed: 10/29/24 21:30> Vital Signs: 10/29/24 19:57 10/29/24 20:47 10/29/24 21:09 Temperature 98.1 F 98.1 F Temperature Source Oral Oral Pulse Rate 86 Pulse Rate [Right] 85 Respiratory Rate 28 H 26 H Blood Pressure 140/64 150/72 H Blood Pressure [Right Arm] 159/65 H Blood Pressure Mean [Right Arm] 96 Blood Pressure Position Sitting Blood Pressure Position [Right Arm] Sitting 02 Sat by Pulse Oximetry 99 Oxygen Delivery Method Room Air Room Air Orders (Tests/Meds): ED MEDICATIONS Discontinued Medications Generic Name Dose Route Start Last Admin Trade Name Freq PRN Reason Stop Dose Admin Acetaminophen 1,000 mg 10/29/24 20:10/29/24 20:16 Acetaminophen 500mg Tab PO 10/29/24 20:10 1,000 mg ONCE ONE Administration Ibuprofen 800 mg 10/29/24 20:09 10/29/24 20:16 Ibuprofen 400 Mg Tablet PO 10/29/24 20:10 800 mg ONCE ONE Administration Lidocaine 1 each 10/29/24 20:09 10/29/24 20:15 Lidocaine 5% Transdermal Patch TD 10/29/24 20:10 1 each ONCE ONE Administration Oxycodone HCl 5 mg 10/29/24 20:40 10/29/24 20:46 Oxycodone 5mg Immediate Release Tablet PO 10/29/24 20:41 5 mg ONCE ONE Administration ORDERS Category Date Time Status CT chest wo con Stat Cat Scan 10/29/24 20:09 Completed HIV Combo Stat Lab 10/29/24 20:01 Received Hepatitis C Ab Qual. W/ RFX Stat Lab 10/29/24 20:01 Received Medical Decision Narrative: In summary patient is a 64-year-old female who presents to the emergency department for evaluation of anterior lateral chest wall pain. Patient is hemodynamically stable upon arrival, afebrile. Physical exam is remarkable for tenderness to palpation at the lateral costal cartilage rib border however there is no palpable bony deformity contusions abrasions edema ecchymosis noted. Breath sounds clear and equal bilaterally to the bases without active sounds.. Differential diagnosis includes costal cartilage separation versus occult rib fracture versus costal cartilage fracture etc. Initial workup will be conducted with CT scan of the chest without contrast. Initial interventions include Tylenol ibuprofen and Lidoderm patch. Initial workup reviewed by me above formal interpretation of her imaging does not show any acute bony fracture or acute intrathoracic process prior to radiology read. Please see final read for formal interpretation. Upon repeat evaluation patient had acceptable resolution of symptoms, had persistent pain for which additional interventions were conducted (describe interventions), tolerated p.o., was ambulatory, etc.. Given this patient is appropriate for discharge with recommendation to continue taking Tylenol alternating with Motrin for symptomatic and supportive care along with ice or heat whichever feels better. If she has continued new or worsening signs or symptoms follow-up with her PCP return to the ER as needed. I was consulted by the HAMIDA, and we discussed the complexity of the problems being addressed. I approved the treatment and management plan for this patient's care in the Emergency Department, thus performing a substantive portion of the medical decision making. Anthony Alonso MD Critical Care <SKYE Braden - Last Filed: 10/29/24 20:39> Critical Care Time Critical Care Time: No
[2024-10-29 19:57] VITALS: BP 159/65; PULSE 85; RESP 28; TEMP 36.7; O2SAT 99; BMI 16.6
--- NOTE | 2024-10-29 20:06 | PC.NURSE ---
provider at the bedside
--- NOTE | 2024-10-29 20:09 | CT_ITS ---
PROCEDURE INFORMATION: Exam: CT Chest Without Contrast; Diagnostic Exam date and time: 10/29/2024 8:18 PM Age: 64 years old Clinical indication: Other: Right anterior lateral chest wall pain TECHNIQUE: Imaging protocol: Diagnostic computed tomography of the chest without contrast. Radiation optimization: All CT scans at this facility use at least one of these dose optimization techniques: automated exposure control; mA and/or kV adjustment per patient size (includes targeted exams where dose is matched to clinical indication); or iterative reconstruction. COMPARISON: CT CHEST WO CON 03/29/2022 1:28 PM FINDINGS: Lungs: There are moderate centrilobular emphysematous changes of the lungs with an apical gradient. Pleural spaces: Unremarkable. No pneumothorax. No pleural effusion. Heart: Unremarkable. No cardiomegaly. No pericardial effusion. Coronary arteries: Mild calcific atherosclerotic disease of the LAD. Lymph nodes: Right hilar, left hilar, and subcarinal calcified nodes compatible with prior granulomatous process. Vasculature: There is moderate calcific atherosclerotic disease of the thoracic aorta without aneurysmal dilatation. Spleen: Multiple benign-appearing calcific densities of the spleen. Bones/joints: Unremarkable. No acute fracture. 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 IMPRESSION: No acute findings. COMMENTS: The presence of pulmonary emphysema on CT is an independent risk factor for lung cancer. In the absence of a history or active diagnosis of lung cancer, it is recommended that this patient with emphysema be evaluated for enrollment in a low dose CT lung cancer screening program.
[2024-10-29] MEDS: LIDOCAINE 5% TRANSDERMAL PATCH 1 EACH TD (20:15)
[2024-10-29] MEDS: ACETAMINOPHEN 500MG TAB 1000 MG PO (20:16)
[2024-10-29] MEDS: IBUPROFEN 400 MG TABLET 800 MG PO (20:16)
--- NOTE | 2024-10-29 20:19 | PC.NURSE ---
pt taken to ct scan at this time
[2024-10-29] MEDS: OXYCODONE 5MG IMMEDIATE RELEASE TABLET 5 MG PO (20:46)
[2024-10-29 20:47] VITALS: BP 140/64
--- NOTE | 2024-10-29 21:00 | PC.NURSE ---
provider at the bedside updating on POC
[2024-10-29 21:09] VITALS: BP 150/72; PULSE 86; RESP 26; TEMP 36.7; O2SAT 99
[2024-10-29 21:39] LABS: HIV Combo NEGATIVE (Negative)
[2024-10-29 21:47] LABS: Hepatitis C Ab Qual. W/ RFX NEGATIVE (Negative)
== END 2024-10-29 21:10 | disposition home or self-care (01) ==
PROVIDERS: Emergency Provider Emergency Medicine; PCP Nurse Practitioner Family
DX: R07.89 Other chest pain (principal); X50.1XXA Overexertion from prolonged static or awkward postures, initial encounter; Z11.59 Encounter for screening for other viral diseases; Z11.4 Encounter for screening for human immunodeficiency virus [HIV]
CPT/HCPCS: 99284; 71250; 86803; 87389

== ENCOUNTER 2025-05-20 10:30 | Outpatient (CLI) | payer MEDICARE, SELFPAY ==
[2025-05-20 14:25] LABS: Coronavirus 19, PCR Not Detected (NotDetected); Influenza A, PCR Not Detected (NotDetected); Influenza B, PCR Not Detected (NotDetected)
--- OUTSIDE RECORDS SUMMARY | 2025-05-23 10:46 | XMS_ITS | Clinical Summary ---
Author Organization Healthcare Address [address] [place] [address] Care Team Providers Care Substance Abuse Therapist Name Role Phone Unavailable Primary Care Provider [...]
== END 2025-05-20 23:59 ==
LOC: LAB.DROPOF 05-23 10:30
PROVIDERS: PCP Nurse Practitioner Family; Visit Provider Nurse Practitioner
DX: J32.9 Chronic sinusitis, unspecified (principal)
CPT/HCPCS: 87631

== ENCOUNTER 2025-06-14 10:08 | Emergency (ER) | payer MEDICARE, SELFPAY ==
[2025-06-14 10:12] VITALS: BP 131/85; PULSE 102; O2SAT 95
[2025-06-14 10:16] VITALS: BP 131/85; PULSE 108; RESP 16; TEMP 36.6; O2SAT 95; BMI 16.6
--- NOTE | 2025-06-14 10:16 | ED_ITS ---
<Statement entered by Tika Soares MD - 06/14/25 15:16> I was consulted by the HAMIDA, and we discussed the complexity of the problems being addressed. I approved the treatment and management plan for this patient's care in the emergency department, thus performing a substantive portion of the medical decision making. Tika Soares MD, JOELLE, FACEP Discharge Plan Disposition Patient Disposition: Home, Self-Care Condition: Good Prescriptions Prescriptions: No Action benzonatate 100 mg capsule 100 mg PO TID PRN (Reason: cough) Qty: 30 0RF methylprednisolone [Medrol (Aman)] 4 mg tablets,dose pack See Rx Instructions PO PER PKG DIR Qty: 21 0RF Rx Instructions: PO PER PKG DIR for 6 days amoxicillin-pot clavulanate 875-125 mg tablet 1 tab PO BID 10 Days Qty: 20 0RF Referrals Follow up/Referrals: Nitza Haley APRN [Primary Care Provider, Medical] - See instructions Lg Bae DO [Staff Physician, Orthopedics] - See instructions Activity Restrictions/Add. Instructions Additional Instructions/Restrictions: Please return to the emergency department any worsening signs or symptoms, I would utilize Motrin Tylenol, rest, ice, as needed for symptomatic relief. Could consider follow-up with orthopedic doctor above in the upcoming days/ weeks. We will call you with any results of your x-ray that may be noticed by radiologist no news is good news. Clinical Impressions Clinical Impression: Injury of left tibia Print Language Print Language: Serbian Discharge ED Provider: Tika Soares General Adult HPI General Chief complaint: Extremity Injury, Lower Stated complaint: AO11/22, Lt leg pain Time Seen by Provider: 06/14/25 10:10 Mode of Arrival: Ambulatory Source of Information: Patient and Medical Record Limitations: No Limitations History of Present Illness HPI narrative: 65-year-old female presents to the emergency department today for an evaluation of left chung pain. She reports hitting her chung on her trailer hitch while loading cattle [place] her [place]. This occurred 3 days ago. She describes the pain as a dull aching throbbing pain. She has taken Tylenol for this with mild relief. She reports the pain is being a 5 out of 10 in severity. She denies fever chills tingling. She denies any radicular symptoms. Denies any other upper or lower extremity injury, denies actually falling, denies striking the head denies any LOC denies any presyncopal or syncopal event, denies any other acute signs or symptoms. She has a past medical history of COPD. She has a history of smoking. She denies any other alcohol or drug use. Initial triage vitals are notable for tachycardia otherwise unremarkable. Of note, patient has been able to ambulate on the affected extremity, with no limited range of motion, but does have some pain with ambulation. Please note that above description of symptoms, in this electronic medical record under categorization of recalled from ER triage doctor by RN are reflective of an initial nursing assessment, however, is not reflective of my full history and physical exam that was personally taken and clarified. Consequentially, this preceding description of symptoms, which may include the patient's categorized chief complaint in the EMR, do not reflect my personal clinical impression, and the ultimate description of history of present illness and patient stated complaints should be deferred to this section of the note. Unless stated otherwise or congruent with this section of the note, additional signs, symptoms, or incongruence should be interpreted as inaccurate with my clinical impression. Onset (ago): day(s) Related Data Previous Rx's ?Medication ?Instructions ?Recorded amoxicillin 875 mg-potassium 1 tab PO BID 10 days #20 tabs 05/20/25 clavulanate 125 mg tablet benzonatate 100 mg capsule 100 mg PO TID PRN cough #30 caps 05/20/25 methylprednisolone 4 mg tablets in See Rx Instructions PO PER PKG DIR 05/20/25 a dose pack (Medrol (Aman)) #21 tabs Allergies Allergy/AdvReac Type Severity Reaction Status Date / Time No Known Allergies Allergy Verified 05/20/25 11:39 [facility] Disclaimer: The information contained in this section may have been updated after the patient was seen, as this information can be updated by other users. Medical History (Updated 06/14/25 @ 11:28 by SKYE Nassar) Sinusitis COPD (chronic obstructive pulmonary disease) Tobacco abuse disorder Tobacco abuse counseling Abnormal screening CT of chest Smoking greater than 30 pack years Dyspnea on exertion Pulmonary emphysema Surgical History History of tubal ligation Hx of cholecystectomy Family History Other Coronary artery disease Heart attack Social History (Updated 06/14/25 @ 10:24 by Cherise Almaguer RN) Smoking Status: Current every day smoker tobacco type: cigarettes packs per day: 1 alcohol intake: never substance use type: denies use current occupational status: unemployed Travel in the last 8 weeks?: None household members: spouse housing: house caffeine: No Have you lived/traveled outside [place] in past 30 days?: No Contact w/someone who lives/traveled outside [place] past 30 days?: No Exposure to someone with infectious disease in past 14 days?: No Do you have a fever (greater than 100.4 F or 38 C)?: No Have you tested positive for COVID-19?: No Exposed to someone with COVID-19 in past 14 days?: No Do you have a sore throat?: No Do you have a cough?: No Do you have any weakness?: No Do you have any diarrhea?: No Are you experiencing any unusual bleeding?: No Do you have any muscle aches/pain?: No Do you have any abdominal pain?: No Are you experiencing loss of taste or smell?: No Other Medical History Have you received the Flu Vaccine for this season: Yes Have you received the Pneumonia Vaccine: No ROS Obtained: Yes All systems reviewed & no additional complaints except as documented Physical Exam General General appearance: alert and in no apparent distress Head Head exam: atraumatic and normocephalic Eye Eye exam: Present PERRL and EOMI ENT ENT exam: Present mucous membranes moist Neck Neck exam: Present normal inspection Chest Chest inspection: Present normal inspection and symmetric chest wall rise Respiratory Respiratory exam: Present normal lung sounds bilaterally; Absent respiratory distress Cardiovascular Cardiovascular exam: Present regular rate and normal rhythm Abdominal Exam Abdominal exam: Present soft; Absent tenderness Extremities Exam Extremities exam: Present normal inspection, full ROM, tenderness and other (There is pain to patient to the mid tibia shaft region, no obvious acute traumatic dislocation or deformity, otherwise neurovascular intact, moves extremity to command, with good flexion and extension); Absent edema or joint swelling Neurological Exam Neurological exam: Present alert and oriented X3 Psychiatric Psychiatric exam: Present normal affect Skin Skin exam: Present warm and dry Medical Decision Making Medical Records Medical records reviewed: Yes I reviewed the patient's medical records. Screening: Per USPSTF and CDC recommendations, given the prevalence of disease in our region, it is our hospital?s policy to screen for HIV and viral Hepatitis for all patients aged 18 and over and those with ongoing risk factors. Anil Inquiry Pt receiving controlled substance: No Ainl was queried for this patient: No Vital Signs: 06/14/25 10:12 06/14/25 10:16 06/14/25 10:25 Temperature 97.8 F Temperature Source Oral Pulse Rate 102 H Pulse Rate [Right Brachial] 108 H 108 H Respiratory Rate 16 Blood Pressure 131/85 Blood Pressure [Right Arm] 131/85 Blood Pressure Mean [Right Arm] 100 Blood Pressure Source Blood Pressure Source [Right Arm] Automatic Cuff Blood Pressure Position Blood Pressure Position [Right Arm] Sitting 02 Sat by Pulse Oximetry 95 95 Oxygen Delivery Method Room Air Room Air 06/14/25 10:30 06/14/25 11:33 Temperature 98 F Temperature Source Oral Pulse Rate 96 H 84 Pulse Rate [Right Brachial] Respiratory Rate 18 Blood Pressure 125/80 116/67 Blood Pressure [Right Arm] Blood Pressure Mean [Right Arm] Blood Pressure Source Automatic Cuff Blood Pressure Source [Right Arm] Blood Pressure Position Sitting Blood Pressure Position [Right Arm] 02 Sat by Pulse Oximetry 98 Oxygen Delivery Method Room Air Room Air Orders (Tests/Meds): ED MEDICATIONS Discontinued Medications Generic Name Dose Route Start Last Admin Trade Name Freq PRN Reason Stop Dose Admin Ibuprofen 400 mg 06/14/25 11:25 Ibuprofen 400 Mg Tablet PO 06/14/25 11:26 ONCE ONE ORDERS Category Date Time Status XR tibia fibula LT 2V Stat Exams 06/14/25 10:26 Taken Medical Decision Narrative: 65-year-old female presents the emergency department with left lower extremity/tibia pain after striking a trailer hitch 3 days ago, differential diagnose include but not limited to soft tissue contusion, tibia fracture, fibula fracture, leg sprain/strain among others. I discussed this patient's case with the attending physician Dr. Soares Will obtain x-rays of the patient's left tib-fib region for further evaluation/characterization, will also give 400 p.o. Motrin. I along with the attending physician Dr. Soares reviewed the patient's plain film images of her left tib-fib, there is no acute osseous abnormality, I discussed that full radiology report is not yet available, patient would like to be discharged home to self-care, shared decision making was utilized I believe this is appropriate, will call patient with any acute findings/notable findings that radiology report may indicate. Patient was given strict return precautions. Patient voiced understanding and agreement with the current treatment plan/discharge plan. Upon discharge patient hemodynamically stable tachycardia is improved. Critical Care Critical Care Time Critical Care Time: No
--- OUTSIDE RECORDS SUMMARY | 2025-06-14 10:16 | XMS_ITS | Clinical Summary ---
Author Organization Healthcare Address [address] [place] [address] Care Team Providers Care Stack Clerk Name Role Phone Unavailable Primary Care Provider [...]
[2025-06-14 10:25] VITALS: PULSE 108
--- NOTE | 2025-06-14 10:26 | XR_ITS ---
FINAL REPORT CLINICAL HISTORY: Left tib-fib pain FINDINGS: AP and lateral views of the left tibia and fibula were obtained. There is no prior exam for comparison. There is no acute fracture of the left tibia or fibula. The knee and ankle appear intact. The soft tissues are normal. IMPRESSION: No acute osseous abnormality of the left tibia or fibula. Reviewed, Interpreted and Dictated by Yudy Levin MD Transcribed by Vianey Robison Authenticated and [facility][1]
[2025-06-14 10:30] VITALS: BP 125/80; PULSE 96; O2SAT 98
[2025-06-14 11:33] VITALS: BP 116/67; PULSE 84; RESP 18; TEMP 36.6; O2SAT 98
--- NOTE | 2025-06-20 11:35 | PC.NURSE ---
pt called asking the results of her final XR read. The line disconnected prior to giving any information.
== END 2025-06-14 11:33 | disposition home or self-care (01) ==
PROVIDERS: Emergency Provider Student in an Organized Health Care Education/Training Program; PCP Nurse Practitioner Family
DX: S89.92XA Unspecified injury of left lower leg, initial encounter (principal); M79.662 Pain in left lower leg; W22.8XXA Striking against or struck by other objects, initial encounter
CPT/HCPCS: 73590; 99283; 99284